=== PATIENT | male | born 1975 | race Hispanic/Latino ===

== ENCOUNTER 2019-02-28 00:35 | Emergency (ER) | payer SELFPAY ==
[2019-02-28 00:56] LABS: Bilirubin Negative (Negative); Blood, Urine Large (Negative); Clarity Clear (Clear); Glucose, Urine (Dipstick) Negative (Negative); Leukocyte Negative (Negative); Nitrite Negative (Negative); Protein, Urine (Dipstick) Negative (Neg-Trace); Urobilinogen 0.2 mg/dL (Less than 2)
[2019-02-28 00:59] LABS: RBC/HPF 0-3 HPF (0-3); Squamous Epithelial None Seen HPF (0-3); WBC/HPF None Seen HPF (0-3)
[2019-02-28 01:00] LABS: Amphetamine Not Detected (NotDetected); Barbiturates Screen Not Detected (NotDetected); Benzodiazepine Screen Not Detected (NotDetected); Cocaine Metabolite Screen Not Detected (NotDetected); Medtox Control Line Valid? VALID (VALID); Methadone Not Detected (NotDetected); Methamphetamine Not Detected (NotDetected); Opiate Screen Not Detected (NotDetected); Oxycodone Screen Not Detected (NotDetected); Phencyclidine (PCP) Not Detected (NotDetected); THC/Cannabinoid Screen Not Detected (NotDetected); Tricyclic Screen Not Detected (NotDetected)
[2019-02-28] MEDS ORDERED: Sodium Chloride 0.9% 1,000 ML ONE (01:04)
[2019-02-28 01:06] LABS: ALT (SGPT) 41 U/L (8-55); AST (SGOT) 38 U/L (5-34); Albumin 4.4 g/dL (3.5-5.0); Alkaline Phosphatase 113 U/L (40-150); Anion Gap 15 mmol/L (10-20); BUN (Urea Nitrogen) 13 mg/dL (8.9-20.6); Bilirubin, Total 0.4 mg/dL (0.2-1.2); Calc. Creatinine Clearance 0 mL/min (70-130); Carbon Dioxide 21 mmol/L (22-29); Chloride 112 mmol/L (98-107); Estimated GFR-MDRD Greater than 90; Globulin 2.7 g/dL (2.4-3.5); Glucose 114 mg/dL (70-105); Potassium 3.6 mmol/L (3.5-5.1); Protein, Total 7.1 g/dL (6.0-8.3); Sodium 144 mmol/L (136-145)
[2019-02-28 01:07] LABS: Band 15 % (5-11); Eosinophils 3 % (0-10); Hemoglobin 15.1 g/dL (14.0-18.0); Lymphocytes 25 % (21-51); MDiff Complete? YES; Mean Corpuscular HGB CONC 33.4 g/dL (32.0-36.0); Mean Corpuscular Hemoglobin 30.3 pg (27.0-31.0); Mean Corpuscular Volume 90.7 fL (78.0-98.0); Mean Platelet Volume 9.1 fL (7.4-10.4); Monocytes 6 % (0-10); Neutrophil 50 % (42-75); Platelet Count 172 thou/uL (130-400); Platelet Morphology Comment Appears Adequate; RBC Morphology Normal; White Blood Cell (WBC) Count 8.7 thou/uL (4.8-10.8)
[2019-02-28 01:20] LABS: Alcohol 168 mg/dL (Less than 10)
[2019-02-28 01:21] LABS: Acetaminophen Less than 6.0 mcg/mL (10.0-30.0); Salicylate Less than 8.0 mg/dL (15.0-30.0)
--- NOTE | 2019-02-28 08:56 | CT ---
CT HEAD NONCONTRAST: Date: 02/28/19 INDICATION: Seizure, fall with head injury. FINDINGS: No acute intracranial hemorrhage, mass effect, midline shift, or ventriculomegaly. There is mucosal t hickening and retention cyst formation of the imaged paranasal sinuses. IMPRESSION: No acute intracranial hemorrhage or mass effect. Should seizure activity persist, consider follow-up of brain MRI for further evaluation. POS: DENICE
--- NOTE | 2019-02-28 08:58 | CT ---
CERVICAL SPINE CT NONCONTRAST: Date: 02/28/19 INDICATION: Neck injury, pain related to fall. FINDINGS: Trace spondylolisthesis of C4-5 is present. There is a small sclerotic focus of the inferior and post erior C4 vertebral body. Mild superior end plate sclerosis of C5 is present. There is motion artifact which does produce mild anterior vertebral body irregularity at C4. The vertebral canal is grossly p atent by noncontrast CT assessment. IMPRESSION: No definite acute osseous abnormality of the cervical spine. POS: DENICE
--- NOTE | 2019-02-28 10:08 | RAD ---
RIGHT HAND 3 VIEWS: Date: 02/28/19 INDICATION: Status post fall after alcohol intake and seizure. COMPARISON: None. FINDINGS: Hand overlying the right wrist slightly limits image detail on AP examination. No definite acute frac ture or subluxation is evident. IMPRESSION: No acute osseous abnormality. POS: BH
== END 2019-02-28 02:12 | disposition short-term general hospital (02) ==
LOC: NAV ERS 00:35
DX: G40.909 Epilepsy, unspecified, not intractable, without status epilepticus (principal); F10.129 Alcohol abuse with intoxication, unspecified; K21.9 Gastro-esophageal reflux disease without esophagitis; Z79.899 Other long term (current) drug therapy
CPT/HCPCS: 70450; 72125; 80053; 80306; 80307; 81003; 81015; 85025; 94760; 96360; J7050